=== PATIENT | female | born 1995 | race Two or more races ===

== ENCOUNTER 2024-08-01 08:44 | Emergency (ER) | payer MEDICAID, SELFPAY ==
[2024-08-01 08:47] VITALS: BP 103/76; PULSE 82; TEMP 36.9; O2SAT 96; BMI 38.6
[2024-08-01 08:58] VITALS: O2SAT 98
--- NOTE | 2024-08-01 09:06 | XR_ITS ---
[address] [address] Patient Name: AMADOU BECKHAM MRN: [id number] date: 1995 Sex: F Assigned Patient Location: ED.MAIN Current Patient Location: ED.MAIN Accession/Order Number: [id number] Exam Date: 08/01/2024 09:21 Report Date: 08/01/2024 10:09 At the request of: CLAUDETTE GURROLA Procedure: XR chest 2V EXAM: XR chest 2V HISTORY: cough COMPARISON: None FINDINGS/IMPRESSION: 1. Lungs are clear 2. No pneumothorax. No pleural effusion. 3. Heart size and mediastinal contours are normal 4. No acute osseous abnormality. 5. Upper abdominal bowel gas pattern is nonspecific. Electronically authenticated by: GUANAKITO SILVEIRA Date: 08/01/2024 10:09
--- NOTE | 2024-08-01 09:08 | ED.GENADUL1 ---
HPI HPI - General Adult General Chief complaint: Upper Respiratory Infection Stated complaint: HEADACHE/ URTI COMPLAINTS Time Seen by Provider: 08/01/24 09:03 Source: patient Mode of arrival: walk-in Limitations: no limitations History of Present Illness HPI narrative: Patient presenting to the emergency department for evaluation of 3 days of cough, nasal congestion, rhinorrhea, feels like she is having some shortness of breath as well, denies chest pain, calf pain,, Calf Tenderness, Recent, Surgery, Immobility, Is Not on Oral Contraceptives. Has Had Fevers Subjectively Feeling Warm, No Myalgias or Bodyaches, Does Have a Headache, Generalized, Mild in Nature, Not the First or Worst Headache of. No Complaints at This Time Related Data Previous Rx's ?Medication ?Instructions ?Recorded methylprednisolone 4 mg tablets in 4 mg PO DAILY #21 ea 08/01/24 a dose pack (Medrol (Dayron)) Allergies Allergy/AdvReac Type Severity Reaction Status Date / Time No Known Drug Allergies Allergy Verified 08/01/24 08:51 Opioid HPI Opioid Management Most Recent Opioid Data: Last Pain Scale 3 08/01/24 09:52 08/01/24 Last ED Pain Assessment 08/01/24 08:58 Last MAR Pain Assessment 08/01/24 09:52 Review of Systems ROS Narrative Negative unless otherwise stated in the HPI PFSH PFSH Social History Little interest or pleasure in doing things: not at all Feeling down, depressed, or hopeless: not at all Exam Narrative Exam Narrative: General: NAD, AAOx3, no distress HEENT: NCAT, mmm, midline uvula, no exudates, normal tonsils without hypertrophy or exudates Respiratory: respiratory effort normal, speaks in full sentences, no tripod position, no accessory muscle use. Mild end expiratory wheezing very faint Cardiac: Regular rate and rhythm, no edema, regular s1/s2, no m/g/r Abdomen: Soft, ND/NT. No evidence of fluid wave. No pulsatile masses on exam, rebound tenderness, Gomez sign or pain over Mcburney's point. Constitutional Vital Signs, click to edit/add: Last Vital Signs Temp 98.4 F 08/01/24 08:47 Pulse 82 08/01/24 08:47 Resp 20 08/01/24 08:47 BP 103/76 08/01/24 08:47 Pulse Ox 98 08/01/24 08:58 O2 Del Method Room Air 08/01/24 08:58 Course Vital Signs Vital signs: Vital Signs Temperature 98.4 F 08/01/24 08:47 Pulse Rate 82 08/01/24 08:47 Respiratory Rate 20 08/01/24 08:47 Blood Pressure 103/76 08/01/24 08:47 Pulse Oximetry 96 08/01/24 08:47 Oxygen Delivery Method Room Air 08/01/24 08:47 Temperature 98.4 F 08/01/24 08:47 Pulse Rate 82 08/01/24 08:47 Respiratory Rate 20 08/01/24 08:47 Blood Pressure 103/76 08/01/24 08:47 Pulse Oximetry 98 08/01/24 08:58 Oxygen Delivery Method Room Air 08/01/24 08:58 Medical Decision Making MDM Narrative Medical decision making narrative: MDM Patient with history as above presented with upper respiratory faction, wheezing. History obtained from patient. Patient was nontoxic, stable. Ambulatory. Exam as above. Independently reviewed imaging. Reviewed external records. Differential diagnosis considered. Overall presentation is consistent with upper respiratory infection, mild bronchospasm resolved with breathing treatments Pt who presented to the ER today for URI symptoms. Patient on exam was well appearing and non toxic appearing. Vitals were reviewed. Patient has no symptoms of otitis media, pneumonia, bacterial pharyngitis or other serious bacterial illness. Respiratory status is unremarkable. At this point in time, patient likely has viral syndrome with no indications for antibiotics. I have recommended fluids and motrin for symptomatic control. Close follow up with PCP. Advanced guidance has been given. Vss, pex is benign at this time. Pt to fu with pcp 1-2 days for reeval, rter should sx worsen, persist or become worrysome in any way. Pt expressed understanding and agreement with plan of care at this time. Will fu as planned. Pt stable for discharge. Discharge Plan Discharge Chief Complaint: Upper Respiratory Infection Clinical Impression: Upper respiratory infection Patient Disposition: Home, Self-Care Time of Disposition Decision: 10:39 Prescriptions / Home Meds: New methylprednisolone [Medrol (Dayron)] 4 mg tablets,dose pack 4 mg PO DAILY Qty: 21 0RF Rx Instructions: 1 medrol dosepak, take per packet instructions Print Language: Filipino Instructions: Upper Respiratory Infection (DC) Additional Instructions: Follow-up with your PCP in the next 1 to 2 days. Return to the emergency department should symptoms worsen or become worrisome in any way. Referrals: Physician,Non-Staff, MD [Primary Care Provider] - 1 week
[2024-08-01] MEDS: IPRATROPIUM/ALBUTEROL SULFATE 3 ML AMPUL.NEB IH (09:17)
[2024-08-01] MEDS: KETOROLAC TROMETHAMINE 30 MG/ML VIAL 15 MG IM (09:52)
[2024-08-01] MEDS: METHYLPREDNISOLONE SOD SUCC PF 125 MG/2 ML VIAL IM (09:52)
[2024-08-01] MEDS: ACETAMINOPHEN 325 MG TABLET 650 MG PO (10:43)
[2024-08-01 10:45] VITALS: BP 108/72; PULSE 84; O2SAT 97
== END 2024-08-01 10:48 | disposition home or self-care (01) ==
PROVIDERS: Emergency Provider Emergency Medicine
DX: J06.9 Acute upper respiratory infection, unspecified (principal)
CPT/HCPCS: 71046; 94640; 96372; 99284; J1885; J2919

== ENCOUNTER 2025-09-11 01:27 | Emergency (ER) | payer OTHER, SELFPAY ==
[2025-09-11] VITALS (7 sets, daily range): BP systolic 114–134; BP diastolic 75–86; PULSE 76; TEMP 37; O2SAT 96–99; BMI 51.6
--- NOTE | 2025-09-11 01:57 | ED.MEDCLEAR1 ---
HPI - Medical Clearance General Chief complaint: Medical Clearance Stated complaint: ingestion Time Seen by Provider: 09/11/25 01:43 Source: patient Mode of arrival: ambulance Limitations: no limitations History of Present Illness HPI Narrative: This 29-year-old female was sent from [facility] after she intentionally put a can of Odor Eliminator in her mouth and sprayed it. Patient states she has been there for 2 days and she hates being there. I asked her why she would do that when she can walk out. She states that if she just walks out she loses her phone and belongings and has to go AMA. [facility] providers did call poison control and they were instructed that this was a nontoxic ingestion. She was sent to the emergency department anyway. She denies that she is suicidal or homicidal. She states that she strictly did this to get out of there. She is not having a difficulty breathing or swallowing. She is drinking soda in the emergency department. She states that she is there because she is homeless. She states she has a history of using crack cocaine in the past but has not been using crack cocaine for the past 1 to 2 years. Related Information Previous Rx's ?Medication ?Instructions ?Recorded methylprednisolone 4 mg tablets in 4 mg PO DAILY #21 ea 08/01/24 a dose pack (Medrol (Dayron)) Allergies Allergy/AdvReac Type Severity Reaction Status Date / Time No Known Drug Allergies Allergy Verified 09/11/25 01:40 Review of Systems ROS Status of ROS 10 or more systems reviewed and unremarkable except as noted in history and below PFSH PFSH Social History Little interest or pleasure in doing things: not at all Feeling down, depressed, or hopeless: not at all Exam Narrative Exam Narrative: Vital signs and Nursing Notes reviewed: Patient is afebrile with a normal pulse, normal blood pressure, she is not hypoxic with pulse ox of 97% on room air General: Awake, alert, oriented, no acute distress, lying comfortably on the stretcher HEENT: Normocephalic atraumatic, mucous membranes are moist and pink, eyes are clear, normal conjunctiva, vision is grossly intact, posterior pharynx is normal in appearance. Voice is clear, there is no trismus or drooling, there is no redness or swelling of the tongue, uvula or pharyngeal soft tissues Neck: Supple, no meningeal signs, no anterior or posterior cervical lymphadenopathy Chest: Lungs are clear to auscultation with good air entry, there is no wheezing rhonchi or rales appreciated no accessory muscle use, patient is speaking in complete sentences-no chest wall tenderness to palpation CVS: Regular rate and rhythm S1-S2, no murmurs rubs or gallops, pulses are brisk and equal bilaterally Extremities: Moving all extremities, no lower extremity tenderness or swelling noted, negative Homans' sign, pulses are brisk and equal bilaterally Skin: Normal in appearance without rash,pallor, petechiae or purpura Neuro: No focal deficits Constitutional Vital Signs, click to edit/add: Last Vital Signs Temp 98.6 F 09/11/25 01:37 Pulse 76 09/11/25 01:37 Resp 18 09/11/25 01:37 BP 117/75 09/11/25 01:37 Pulse Ox 97 09/11/25 01:37 O2 Del Method Room Air 09/11/25 01:37 Course Vital Signs Vital signs: Vital Signs Temperature 98.6 F 09/11/25 01:37 Pulse Rate 76 09/11/25 01:37 Respiratory Rate 18 09/11/25 01:37 Blood Pressure 117/75 09/11/25 01:37 Pulse Oximetry 97 09/11/25 01:37 Oxygen Delivery Method Room Air 09/11/25 01:37 Temperature 98.6 F 09/11/25 01:37 Pulse Rate 76 09/11/25 01:37 Respiratory Rate 18 09/11/25 01:37 Blood Pressure 117/75 09/11/25 01:37 Pulse Oximetry 97 09/11/25 01:37 Oxygen Delivery Method Room Air 09/11/25 01:37 MDM - Medical Clearance MDM Narrative Medical decision making narrative: Poison control was contacted and recommended supportive care Presents for evaluation after she sprayed a can of water eliminator into her mouth. She denies that she is suicidal or homicidal stating that she just wanted to get released from [facility] where she has been for the past 2 days. She states she has not been using any drugs or alcohol for the past 2 years but is there because she is homeless. I explained to her that there is nothing that needs to be done for her symptoms according to her physical exam and poison control recommendations. She will be returned to [facility] for further evaluation and treatment. I suggested that she refrain from doing things like this in the future when in fact she can just walk out of the facility, loss of course she is placed there by a court which she declines to answer. Discharge Plan Discharge Chief Complaint: Medical Clearance Clinical Impression: Ingestion of nontoxic substance Time of Disposition Decision: 01:57 Discharge Location: [facility] Prescriptions / Home Meds: No Action methylprednisolone [Medrol (Dayron)] 4 mg tablets,dose pack 4 mg PO DAILY Qty: 21 0RF Rx Instructions: 1 medrol dosepak, take per packet instructions Print Language: Estonian Additional Instructions: Discontinue use of ingesting foreign material as this may cause you harm. Referrals: Physician,Non-Staff, MD [Primary Care Provider] - 1 week
--- OUTSIDE RECORDS SUMMARY | 2025-09-11 02:04 | XMS_ITS | Clinical Summary ---
Author Organization [facility] Address [address] [address] Care Team Providers Care Medical Doctor Nuclear Medicine Name Role Phone Self, Referred Primary Care Provider Unavailabl e Allergies No known active allergies Encounters DateTypeDepartmentCare PplnCpxtzlxwnga96/01/2025 5:15 PM EDT - 07/20/2025 6:26 PM EDTEmergency [facility] Emergency [address] [place] [address] Radhika Pittman PA-C Acute nonintractable headache, unspecified headache type (Primary Dx) Discharge Disposition: Home or Self Care ()07/20/2025Travelfrom Last 3 Months Social History Tobacco UseTypesPacks/DayYears UsedDateSmoking Tobacco: NeverSmokeless Tobacco: Never Tobacco Cessation:Counseling Given: Not Answered Alcohol UseStandard Drinks/WeekCommentsNever0 (1 standard drink = 0.6 oz pure alcohol)[place] Safety & EnvironmentAnswerDate RecordedFear of Current or Ex-Partner Not on file11/10/2023Emotionally AbusedNot on file11/10/2023hysically AbusedNot on file11/10/2023Sexually AbusedNot on file11/10/2023hysically or Sexually AbusedNot on file11/10/2023CommentsNoSex and Gender InformationValueDate RecordedSex Assigned at ZmzjlZcrjxz73/01/2025 5:53 PM EDTLegal SexFemale 03/17/2022 10:00 PM EDTGender YgmckhkzUuitay08/01/2025 5:53 PM EDTSexual OrientationChoose not to wqexdonq34/01/2025 5:53 PM EDT Last Filed Vital Signs Vital SignReadingTime TakenCommentsBlood Igszpede153/775 6:23 PM EDT Ksrty4469/01/2025 6:23 PM FTNIrwbhhyylap51.9 ??C (98.5 ??F)07/20/2025 5:19 PM EDTRespiratory Gcwx603009/19/2024 6:23 PM EDTOxygen Ppalotvyaz94%07/20/2025 6:23 PM EDTInhaled Oxygen Concentration--Sadvkr67.7 kg (200 lb)07/20/2025 5:19 PM EDT Inuhtm992 cm (5' 3 )07/20/2025 5:19 PM EDTBody Mass Index35.43109/19/2024 5:19 PM EDT Plan of Treatment Health MaintenanceDue DateLast DoneCommentsDepression Viwnalpbs78/07/2006 Varicella Vaccines (1 of 2 - 13+ 2-dose series)2006Pap Smear2014 Adult Plsetyb0512/25/2015HPV Vaccines (1 - 3-dose SCDM series)2020ervical Cancer Jomhdbpet53/07/2024HPV/Pvepah914COVID-19 Vaccine ( - season)2025Influenza Vaccine (#1)2025Zoster Vaccines (1 of 2) 12/25/2043HIB VaccinesAged OutNo longer eligible based on patient's age to complete this topicIPV VaccinesAged OutNo longer eligible based on patient's age to complete this topicMeningococcal B VaccineAged OutNo longer eligible based on patient's age to complete this topicMeningococcal VaccineAged OutNo longer eligible based on patient's age to complete this topicPneumococcal Vaccine: Pediatrics (0 to 5 Years) and At-Risk Patients (6 to 64 Years)Aged OutNo longer eligible based on patient's age to complete this topicRotavirus VaccinesAged Out No longer eligible based on patient's age to complete this topic Insurance Care Teams Team MemberRelationshipSpecialtyStart DateEnd Date SELF, REFERRED [address] PCP - Amrntcr53/1/25
== END 2025-09-11 02:18 | disposition home or self-care (01) ==
PROVIDERS: Emergency Provider Emergency Medicine
DX: Z03.6 Encounter for observation for suspected toxic effect from ingested substance ruled out (principal)
CPT/HCPCS: 99283